=== PATIENT | male | born 1970 | race Caucasian/White ===

== ENCOUNTER 2024-07-28 00:03 | Emergency (ER) | payer OTHER ==
[~2024-07-28] VITALS: Ht 167.6 cm; Wt 101.0 kg
[2024-07-28 00:15] VITALS: O2SAT 98
[2024-07-28] MEDS: MORPHINE SULFATE 4 MG/ML INJ (FOR IV/IM USE) IM ONE (03:34)
[2024-07-28] MEDS ORDERED: IBUP-2029 MT (04:37)
[2024-07-28 04:45] VITALS: BP 140/76; PULSE 75; RESP 18; TEMP 36.89184; O2SAT 100
== END 2024-07-28 04:47 | disposition home or self-care (01) ==
LOC: ER 00:03
DX: S09.8XXA Other specified injuries of head, initial encounter (principal); I10 Essential (primary) hypertension; X58.XXXA Exposure to other specified factors, initial encounter; Y93.89 Activity, other specified; Y92.89 Other specified places as the place of occurrence of the external cause; Y99.8 Other external cause status
CPT/HCPCS: 99285; 70450; 70486; 96372; J2270